=== PATIENT | female | born 1995 | race Caucasian/White ===

== ENCOUNTER 2018-03-13 07:15 | Inpatient (IN) | payer OTHER ==
[2018-03-13] MEDS ORDERED: TUBERCULIN PPD 5 TU/0.1ML SYRINGE (IN PATIENT USE ONLY) ID ONE (07:40)
[2018-03-13] MEDS ORDERED: FENTANYL/BUPIVACAINE/NS/PF - PCEA - 50 ML DISP.SYRIN EP ONE (07:49)
[2018-03-13] MEDS ORDERED: LIDOCAINE HCL 1% PRESERVATIVE FREE - 30ML VIAL ONE (08:19)
[2018-03-13] MEDS ORDERED: OXYTOCIN 20 UNITS in 0.9% NS 20 UNIT/1,000 ML INFUS.BAG IV ONE (08:19)
[2018-03-13 08:27] VITALS: BMI 25.6
[2018-03-13 08:34] LABS: BASO % 0.2 % (0-2.0); HEMATOCRIT 31.7 % (32.4-45.2); HEMOGLOBIN 10.1 GM/dL (10.7-15.3); LYMPH % 8.7 % (8-40); MCH 24.7 pg (25.7-33.7); MCHC 31.9 g/dl (32.0-36.0); MEAN CELL VOLUME 77.3 fl (80-96); MEAN PLT VOLUME 8.4 fl (7.5-11.1); MONO % 5.7 % (3.8-10.2); NEUT % 85.4 % (42.8-82.8); PLATELET COUNT 327 K/MM3 (134-434); RDW 16.9 % (11.6-15.6); WHITE BLOOD COUNT 18.1 K/mm3 (4.0-10.0)
--- NOTE | 2018-03-13 08:39 | HP ---
Past Medical History - Primary Care Physician PCP:: Jennifer Redding - Admission Chief Complaint: 22yo P2 @ - Past Medical History ...: 3 ...Para: 2 ...Term: 1 ...: 1 ...Spon : 0 ...Induced : 0 ...Multiple Gestation: 0 ...EDC by [facility]: 03/25/18 - Smoking History Smoking history: Never smoked Have you smoked in the past 12 months: No - Alcohol/Substance Use Hx Alcohol Use: No Home Medications - Allergies Allergies/Adverse Reactions: Allergies Allergy/AdvReac Type Severity Reaction Status Date / Time No Known Allergies Allergy Verified 03/13/18 09:11 - Home Medications Home Medications: Ambulatory Orders NK [No Known Home Medication] 03/13/18 Physical Exam - Maternity Vital Signs: Vital Signs Temperature 98.2 F 03/13/18 08:22 Pulse Rate 76 03/13/18 08:22 Respiratory Rate 17 03/13/18 08:22 Blood Pressure 125/72 03/13/18 08:22 O2 Sat by Pulse Oximetry (%)
[2018-03-13] MEDS ORDERED: ELECTROLYTE-148 SOLN 1,000 ML IV SCH (08:45)
[2018-03-13] MEDS ORDERED: AMPICILLIN NA/SULBACTAM NA 2 GM in SODIUM CHLORIDE 100 ML IVPB SCH (09:00)
[2018-03-13 09:02] LABS: ANION GAP 10 MMOL/L (8-16); BLOOD UREA NITROGEN 6 mg/dL (7-18); CALCIUM 8.6 mg/dL (8.5-10.1); CHLORIDE 112 mmol/L (98-107); CO2 16 mmol/L (21-32); CREATININE 0.6 mg/dL (0.55-1.02); GLUCOSE,RANDOM 65 mg/dL (74-106); POTASSIUM 3.7 mmol/L (3.5-5.1); SODIUM 138 mmol/L (136-145)
[2018-03-13] MEDS ORDERED: METHYLERGONOVINE MALEATE 0.2 MG/1 ML AMP IM PRN (09:08)
[2018-03-13] MEDS ORDERED: BENZOCAINE 28 GM HEMORRHOIDAL OINTMENT TP PRN (09:08)
[2018-03-13] MEDS ORDERED: WITCH HAZEL 50% (TUCKS) 40 PAD/JAR PAD TP PRN (09:08)
[2018-03-13] MEDS ORDERED: BENZOCAINE 20% 57 GM BOTTLE TP PRN (09:08)
[2018-03-13] MEDS ORDERED: BISACODYL 10 MG SUPP.RECT RC PRN (09:08)
--- NOTE | 2018-03-13 09:08 | PN ---
Delivery - Delivery Vaginal Delivery: No Problems (Thick meconium noted upon AROM, when pushing, 10min prior to delivery), Other (heavy meconium noted at delivery) Type of Anesthesia: Epidural Episiotomy/Laceration: None EBL (cc): 200 Delivery, Single - Stages of Labor Date 1st Stage Initiatied: 03/13/18 Time 1st Stage Initiated: 02:00 Date 2nd Stage Initiated: 03/13/18 Time 2nd Stage Initiated: 08:45 Date of Delivery: 03/13/18 Time of Delivery: 08:51 Date Placenta Delivered: 03/13/18 Time Placenta Delivered: 08:55 Placenta: Yes: Spontaneous - Condition of Infant It Operations Analyst/Strategic Planning Specialist Present: Yes Infant Gender: Male Weight: 6 lb 4 oz Position: Left, OA - 1 Minute Total Score: 8 5 Minutes Total Score: 8 - [place] Feeding Plan Initial Plan: Exclusive throughout hospitalization Benefits of Exclusively reinforced: Yes Remarks - Remarks Remarks: 3min Deceleration noted AROM 10min after noticing prolonged deceleration Pushed for 9min after AROM Delivered without difficulty viable male, APGARs 8/8 Dr. Hood arrived shortly after delivery, Peds nurses present at delivery
[2018-03-13 09:12] LABS: PROTHROMBIN TIME (PATIENT) 11.3 SEC (9.7-13.0)
[2018-03-13 09:14] LABS: ACTIVATED PTT 27.9 SECONDS (25.2-36.5)
[2018-03-13] MEDS ORDERED: D5W-LR W/ 20 UNITS OXYTOCIN 20 UNIT/1,000 ML INFUS.BAG IV SCH (09:15)
[2018-03-13] MEDS ORDERED: AMPICILLIN - 2 GM in SODIUM CHLORIDE 100 ML IVPB ONE (09:15)
[2018-03-13 09:51] LABS: ARTERIAL BLD GAS O2 SATURATION 33.6 % (90-98.9); ARTERIAL BLOOD GAS BASE EXCESS -18.7 meq/l (-2-2); ARTERIAL BLOOD GAS PCO2 61.1 mmHg (35-45); ARTERIAL BLOOD GAS PO2 23.7 mmHg (80-100)
[2018-03-13 09:54] LABS: ARTERIAL BLOOD GAS pH 6.99 (7.35-7.45)
[2018-03-13] MEDS: PRENATAL VITAMINS W/ FOLIC ACID TABLET (FP) PO SCH (10:35)
[2018-03-13] MEDS: FERROUS SO4 325 MG TABLET (FP) PO SCH ×2 (10:35→17:54)
[2018-03-13] MEDS: ACETAMINOPHEN 325 MG TABLET (FP) PO PRN (12:51)
[2018-03-13] MEDS: IBUPROFEN 600 MG TABLET (FP) PO PRN (12:51)
[2018-03-13 16:40] LABS: BASO % 0.2 % (0-2.0); LYMPH % 6.8 % (8-40); MCH 24.7 pg (25.7-33.7); MCHC 32.2 g/dl (32.0-36.0); MEAN CELL VOLUME 76.9 fl (80-96); MEAN PLT VOLUME 8.4 fl (7.5-11.1); MONO % 4.6 % (3.8-10.2); NEUT % 88.4 % (42.8-82.8); PLATELET COUNT 306 K/MM3 (134-434); RBC 3.65 M/mm3 (3.60-5.2); RDW 17.2 % (11.6-15.6); WHITE BLOOD COUNT 20.5 K/mm3 (4.0-10.0)
[2018-03-13 16:54] LABS: PROTHROMBIN TIME (PATIENT) 11.3 SEC (9.7-13.0)
[2018-03-13 16:57] LABS: ACTIVATED PTT 28.4 SECONDS (25.2-36.5)
[2018-03-13 17:30] LABS: ANISOCYTOSIS 2+; MACROCYTOSIS 2+
[2018-03-13 17:31] LABS: PLATELET ESTIMATE ADEQUATE
[2018-03-13 21:29] LABS: COCAINE, UR NEGATIVE ng/ml (CUTOFF=300); METHADONE, UR NEGATIVE ng/ml (CUTOFF=300); OPIATES, URI NEGATIVE ng/ml (CUTOFF=300); PHENCYCLIDINE,URINE NEGATIVE ng/ml (CUTOFF=25); URINE AMPHETAMINES NEGATIVE ng/ml (CUTOFF=500); URINE BARBITURATES NEGATIVE ng/ml (CUTOFF=200); URINE BENZODIAZEPINES NEGATIVE ng/ml (CUTOFF=200)
[2018-03-14] MEDS: IBUPROFEN 600 MG TABLET (FP) PO PRN ×2 (05:53→11:07)
[2018-03-14] MEDS: ACETAMINOPHEN 325 MG TABLET (FP) PO PRN ×2 (05:53→11:07)
[2018-03-14 08:19] LABS: BASO % 0.4 % (0-2.0); EOS % 0.2 % (0-4.5); HEMATOCRIT 29.5 % (32.4-45.2); HEMOGLOBIN 9.3 GM/dL (10.7-15.3); MCH 24.3 pg (25.7-33.7); MCHC 31.4 g/dl (32.0-36.0); MEAN CELL VOLUME 77.2 fl (80-96); MEAN PLT VOLUME 8.1 fl (7.5-11.1); MONO % 3.4 % (3.8-10.2); PLATELET COUNT 294 K/MM3 (134-434); RBC 3.82 M/mm3 (3.60-5.2); WHITE BLOOD COUNT 15.7 K/mm3 (4.0-10.0)
[2018-03-14] MEDS: FERROUS SO4 325 MG TABLET (FP) PO SCH ×2 (09:00→17:38)
--- NOTE | 2018-03-14 10:29 | PN ---
Post Progress Note - Subjective Subjective: No Complains Post Day: 1 Type of Delivery: Vital Signs: Vital Signs Temperature 98.2 F 03/14/18 08:15 Pulse Rate 87 03/14/18 08:15 Respiratory Rate 18 03/14/18 08:15 Blood Pressure 114/72 03/14/18 08:15 O2 Sat by Pulse Oximetry (%) 100 03/13/18 09:40 Breast Exam: Yes: Soft Uterus: Yes: Fundus Firm Abdomen/GI: Yes: Abdomen soft Lochia: Yes: Rubra Lochia, amount: Small Extremities: Yes: Calves non-tender Perineum: Yes: Intact Activity: Ambulating - Labs Labs: CBC WBC 15.7 K/mm3 (4.0-10.0) H 03/14/18 07:45 RBC 3.82 M/mm3 (3.60-5.2) 03/14/18 07:45 Hgb 9.3 GM/dL (10.7-15.3) L 03/14/18 07:45 Hct 29.5 % (32.4-45.2) L 03/14/18 07:45 MCV 77.2 fl (80-96) L 03/14/18 07:45 MCH 24.3 pg (25.7-33.7) L 03/14/18 07:45 MCHC 31.4 g/dl (32.0-36.0) L 03/14/18 07:45 RDW 17.0 % (11.6-15.6) H 03/14/18 07:45 Plt Count 294 K/MM3 (134-434) 03/14/18 07:45 MPV 8.1 fl (7.5-11.1) 03/14/18 07:45 Absolute Neuts (auto) 12.7 K/mm3 (1.5-8.0) H 03/14/18 07:45 Neutrophils % 81.0 % (42.8-82.8) 03/14/18 07:45 Neutrophils % (Manual) 81.0 % (42.8-82.8) 03/13/18 16:03 Band Neutrophils % 10.0 % 03/13/18 16:03 Lymphocytes % 15.0 % (8-40) D 03/14/18 07:45 Lymphocytes % (Manual) 6.0 % (8-40) L 03/13/18 16:03 Monocytes % 3.4 % (3.8-10.2) L 03/14/18 07:45 Monocytes % (Manual) 2 % (3.8-10.2) L 03/13/18 16:03 Eosinophils % 0.2 % (0-4.5) D 03/14/18 07:45 Eosinophils % (Manual) 1.0 % (0-4.5) 03/13/18 16:03 Basophils % 0.4 % (0-2.0) 03/14/18 07:45 Nucleated RBC % 0 % (0-0) 03/14/18 07:45 Hypochromia 2+ 03/13/18 16:03 Platelet Estimate Adequate 03/13/18 16:03 Platelet Comment No clumping noted 03/13/18 16:03 Anisocytosis 2+ 03/13/18 16:03 Macrocytosis 2+ 03/13/18 16:03 Assessment/Plan 22yo P3 now, s/p , PPD # 1 Doing well, VSS, Afebrile Baby boy in Special Nursery, stable, doing well not for circumcision Rh positive not for RhoGam continue routine care Plan D/C 03/15/18 NPV x 6 wks RTO 4-6 wks
[2018-03-14] MEDS: PRENATAL VITAMINS W/ FOLIC ACID TABLET (FP) PO SCH (10:50)
[2018-03-14] MEDS ORDERED: SENNOSIDES/DOCUSATE COMBO (SENNA PLUS) TABLET (UD) PO PRN (22:00)
[2018-03-15 07:47] VITALS: BP 116/77; PULSE 69; TEMP 98.1
[2018-03-15] MEDS: FERROUS SO4 325 MG TABLET (FP) PO SCH (08:14)
[2018-03-15] MEDS: PRENATAL VITAMINS W/ FOLIC ACID TABLET (FP) PO SCH (09:14)
--- NOTE | 2018-03-15 10:55 | DS ---
Physical Exam-ASSISTED LIVING ASSISTANT Vital Signs: Vital Signs Temperature 98.1 F 03/15/18 07:46 Pulse Rate 69 03/15/18 07:46 Respiratory Rate 18 03/15/18 07:46 Blood Pressure 116/77 03/15/18 07:46 O2 Sat by Pulse Oximetry (%) 100 03/13/18 09:40 Constitutional: Yes: Well Nourished, No Distress, Calm Eyes: Yes: WNL, Conjunctiva Clear, EOM Intact HENT: Yes: WNL, Atraumatic, Normocephalic Neck: Yes: WNL, Supple, Trachea Midline Cardiovascular: Yes: WNL, Regular Rate and Rhythm Respiratory: Yes: WNL, Regular, CTA Bilaterally Gastrointestinal: Yes: WNL, Normal Bowel Sounds, Soft ...Rectal Exam: Yes: WNL Renal/: Yes: WNL Pelvis: Yes: WNL External Genitalia: Yes: Normal Vaginal Exam: Yes: Normal Cervix: Yes: Normal Uterus: Yes: Normal ....Post : Yes: Uterus firm, Uterus non-tender Breast(s): Yes: WNL Musculoskeletal: Yes: WNL Extremities: Yes: WNL Edema: No Integumentary: Yes: WNL Wound/Incision: Yes: Clean/Dry, Well Approximated Neurological: Yes: WNL, Alert, Oriented ...Motor Strength: WNL Psychiatric: Yes: WNL, Alert, Oriented Labs: CBC, BMP 03/14/18 07:45 03/13/18 07:41 Delivery - Delivery Vaginal Delivery: No Problems (Thick meconium noted upon AROM, when pushing, 10min prior to delivery), Other (heavy meconium noted at delivery) Type of Anesthesia: Epidural Episiotomy/Laceration: None EBL (cc): 200 Delivery, Single - Stages of Labor Date 1st Stage Initiatied: 03/13/18 Time 1st Stage Initiated: 02:00 Date 2nd Stage Initiated: 03/13/18 Time 2nd Stage Initiated: 08:45 Date of Delivery: 03/13/18 Time of Delivery: 08:51 Time Placenta Delivered: 08:55 Placenta: Yes: Spontaneous - Condition of Barge Master/411 Directory Assistance Operator Present: No Gender: Male Weight: 6 lb 4 oz Position: Left, OA Total Hours ROM (Hrs/Mins): 13 minutes - 1 Minute Total Score: 8 5 Minutes Total Score: 8 - Feeding Plan Initial Plan: Exclusive throughout hospitalization Benefits of Exclusively reinforced: Yes Discharge Summary Reason For Visit: LABOR Procedures: Principal: Normal vaginal delivery Hospital Course: Unremarkable Condition: Good - Instructions Diet, Activity, Other Instructions: Physical activity Resume your normal everyday activity as tolerated no heavy lifting or exercise until seen by your surgeon. You may walk unlimited kyree of and climb stairs. You may resume driving the car when you feel safe and comfortable behind the wheel. No sexual activity as instructed. Wound care If you have a bandage, leave it on, and keep dry for 48-72 hours. After that time discard the outer bandage. If they are tapes on the skin under the out of bandage leave them in place. They will peel off in the next 7 to 10 days. Do Not Peel them off. You may shower the day after surgery. If there are tapes present on the skin, you may shower over them. Diet There are no dietary restrictions. Eat healthy, high-fiber foods. Drink 6 to 8 glasses of liquid each day. This will assist in keeping your bowels are regular. Pain management You may take Tylenol or acetaminophen or Ibuprofen (for example, Motrin, Advil etc.) from my pain prescription medication is ordered should be taken as prescribed for moderate to severe pain. Call MD for any of the following: Severe pain not relieved by medication Fever of 101 or higher Excessive bleeding or drainage on dressing Inability to urinate Referrals: Jennifer Redding MD [Staff Physician] - Disposition: HOME - Home Medications Comprehensive Discharge Medication List: Ambulatory Orders NK [No Known Home Medication] 03/13/18
== END 2018-03-15 15:25 | disposition home or self-care (01) | DRG 775 ==
LOC: JLDR 07:15 → J3W 11:10
PROVIDERS: ADMIT Obstetrics & Gynecology; ATTEND Obstetrics & Gynecology
PROC: 10E0XZZ Delivery of Products of Conception, External Approach (ICD-10-PCS; principal; 2018-03-13)
DX: O34.211 Maternal care for low transverse scar from previous cesarean delivery (principal); Z3A.38 38 weeks gestation of pregnancy; Z37.0 Single live birth
CPT/HCPCS: 36415; 36600; 59409; 80048; 80307; 82803; 85025; 85384; 85610; 85730; 86593; 86850; 86900; 86901

== ENCOUNTER 2023-11-16 07:30 | Inpatient (IN) | payer OTHER ==
[2023-11-16 08:18] VITALS: BMI 26.4
[2023-11-16 08:37] LABS: BASO % 0.6 % (0-2.0); EOS % 0.9 % (0-4.5); HEMATOCRIT 33.5 % (32.4-45.2); HEMOGLOBIN 11.5 GM/dL (10.7-15.3); LYMPH % 24.4 % (8-40); MCH 31.8 pg (25.7-33.7); MCHC 34.4 g/dl (32.0-36.0); MEAN CELL VOLUME 92.5 fl (80-96); MEAN PLT VOLUME 7.6 fl (7.5-11.1); MONO % 6.7 % (3.8-10.2); NEUT % 67.4 % (42.8-82.8); PLATELET COUNT 312 10^3/uL (134-434); RBC 3.62 M/mm3 (3.60-5.2); RDW 14.6 % (11.6-15.6)
[2023-11-16 08:45] LABS: INR 0.97 (0.83-1.09)
[2023-11-16 08:48] LABS: ACTIVATED PTT 27.7 SECONDS (25.2-36.5)
[2023-11-16 08:52] LABS: POTASSIUM 3.5 mmol/L (3.5-5.1)
[2023-11-16 08:54] LABS: CALCIUM 10.2 mg/dL (8.5-10.1)
[2023-11-16 08:58] LABS: CREATININE 0.6 mg/dL (0.55-1.3)
[2023-11-16] MEDS: ELECTROLYTE-148 SOLN 1,000 ML IV SCH (09:40)
[2023-11-16] MEDS ORDERED: AMPICILLIN SODIUM 2 GM VIAL ONE (10:14)
[2023-11-16] MEDS: AMPICILLIN - 2 GM in SODIUM CHLORIDE 100 ML IVPB ONE (10:15)
[2023-11-16] MEDS: AMPICILLIN - 1 GM in SODIUM CHLORIDE 100 ML IVPB SCH (10:51)
[2023-11-16] MEDS ORDERED: AMPICILLIN SODIUM 1 GM VIAL ONE (13:27)
[2023-11-16] MEDS ORDERED: FENTANYL/BUPIVACAINE/NS/PF - PCEA - 50 ML DISP.SYRIN EP ONE (14:11)
[2023-11-16] MEDS ORDERED: NALOXONE HCL 0.4 MG/ML VIAL IVPUSH PRN (14:52)
[2023-11-16] MEDS ORDERED: BUPIVACAINE HCL/PF 0.25% (2.5MG/ML) 10 ML VIAL ONE ×2 (14:53→15:40)
[2023-11-16] MEDS: FENTANYL/BUPIVACAINE/NS/PF - PCEA - 50 ML DISP.SYRIN EP SCH (15:15)
[2023-11-16] MEDS ORDERED: OXYTOCIN 20 UNITS in 0.9% NS 20 UNIT/1,000 ML INFUS.BAG IV ONE (17:30)
[2023-11-16] MEDS: OXYTOCIN 30 UNITS in 0.9% NS 30 UNIT/500 ML INFUS.BAG IVPB SCH (17:31)
[2023-11-16] MEDS: OXYTOCIN 20 UNITS in 0.9% NS 20 UNIT/1,000 ML INFUS.BAG IV SCH (17:55)
[2023-11-16] MEDS: METHYLERGONOVINE MALEATE 0.2 MG/1 ML AMP IM PRN (18:00)
[2023-11-16] MEDS ORDERED: BENZOCAINE 28 GM HEMORRHOIDAL OINTMENT TP PRN (18:23)
[2023-11-16] MEDS ORDERED: WITCH HAZEL 50% (TUCKS) 40 PAD/JAR PAD TP PRN (18:23)
[2023-11-16] MEDS ORDERED: ACETAMINOPHEN 325 MG TABLET (FP) PO PRN (18:23)
[2023-11-16] MEDS ORDERED: oxyCODONE HCL 5 MG TABLET PO PRN (18:23)
[2023-11-16] MEDS ORDERED: BISACODYL 10 MG SUPP.RECT RC PRN (18:23)
[2023-11-16] MEDS ORDERED: BENZOCAINE 20% 57 GM BOTTLE TP PRN (18:23)
[2023-11-16 18:38] LABS: CORD BASE EXCESS -8.8 mmol/L (0-2); CORD BASE EXCESS -9.6 mmol/L (0-2); CORD HCO3 15.8 mmHg (20-29); CORD HCO3 17.3 mmHg (20-29); CORD PCO2 33.4 mmHg (30-78); CORD pH 7.276 (7.14-7.44); CORD pH 7.293 (7.14-7.44)
[2023-11-17] MEDS: IBUPROFEN 600 MG TABLET (FP) PO PRN (01:52)
[2023-11-17 07:04] LABS: BASO % 0.5 % (0-2.0); EOS % 0.6 % (0-4.5); HEMATOCRIT 30.9 % (32.4-45.2); HEMOGLOBIN 10.5 GM/dL (10.7-15.3); LYMPH % 20.6 % (8-40); MCH 31.4 pg (25.7-33.7); MCHC 33.8 g/dl (32.0-36.0); MEAN CELL VOLUME 92.9 fl (80-96); MEAN PLT VOLUME 7.6 fl (7.5-11.1); MONO % 8.6 % (3.8-10.2); NEUT % 69.7 % (42.8-82.8); PLATELET COUNT 258 10^3/uL (134-434); RBC 3.33 M/mm3 (3.60-5.2); RDW 14.1 % (11.6-15.6); WHITE BLOOD COUNT 15.2 K/mm3 (4.0-10.0)
[2023-11-17] MEDS: PRENATAL VITAMINS W/ FOLIC ACID TABLET (FP) PO SCH (09:01)
[2023-11-17 19:24] VITALS: RESP 18
[2023-11-17] MEDS ORDERED: SENNOSIDES/DOCUSATE COMBO (SENNA PLUS) TABLET (UD) PO PRN (22:00)
[2023-11-18 11:04] VITALS: BP 117/80; PULSE 80; TEMP 98
== END 2023-11-18 12:42 | disposition home or self-care (01) | DRG 807 ==
LOC: JLDR 07:30 → J3W 20:27
PROVIDERS: ADMIT Obstetrics & Gynecology; ATTEND Obstetrics & Gynecology
PROC: 10E0XZZ Delivery of Products of Conception, External Approach (ICD-10-PCS; principal; 2023-11-16)
PROC: 10907ZC Drainage of Amniotic Fluid, Therapeutic from Products of Conception, Via Natural or Artificial Opening (ICD-10-PCS; 2023-11-16)
DX: O34.219 Maternal care for unspecified type scar from previous cesarean delivery (principal); Z37.0 Single live birth; O24.420 Gestational diabetes mellitus in childbirth, diet controlled; Z3A.40 40 weeks gestation of pregnancy
CPT/HCPCS: 36415; 36600; 80048; 82803; 82962; 85025; 85610; 85730; 86780; 86850; 86900; 86901